=== PATIENT | male | born 1985 ===

== ENCOUNTER 2022-05-10 10:15 | Outpatient (CLI) | payer OTHER ==
--- NOTE | 2022-05-10 11:17 | SLEEP CARE CONSULTATION ---
Information from patient questionnaire entered by Edmundo Reyes MA. I have reviewed and concur with the information entered by Edmundo Reyes MA. This document represents the service I personally performed and the decisions made by , Jordyn Silvestre ARNP. History of Present Illness Service Date and Time: 05/10/2022 1015 Reason for Visit: New patient (ONSET 11/2016, ON CPAP, ), Previously diagnosed sleep apnea, sleep apnea on CPAP therapy Chief Complaint: reports: Observed pauses in breathing, Fatigue Date of Onset: 5 YEARS Usual bedtime: 9 - 4 AM Time it takes to fall asleep: RIGHT AWAY Snores at night: Yes Observed to quit breathing while asleep: Yes Sleeps alone due to snoring: No Number of times waking at night: 2-3 Reasons for waking at night: reports: Snoring, Bathroom Toss, Turn, or Twitch while sleeping: Yes Recalls having dreams: Yes Usually gets out of bed at: 0430 Feels refreshed in the morning: No Morning headache: Yes Sleepy or fatigued during the day: Yes Ever fallen asleep while driving: Yes Takes day naps: No Dreams during day naps: No Prior sleep studies: Yes Year and Where: 02/13/2018 [facility] [place] Additional HPI information: YAQUELIN DANIEL was previously diagnosed in 2018 to have moderate, AHI 22.4, obstructive sleep apnea-hypopnea syndrome and comes in today to establish care for CPAP therapy. He states that he had a sleep study done in [place] and was placed on CPAP therapy. He has not had any follow up since he started. He states he last got a machine in 2016, he thinks it was March. - Parasomnia Symptoms Ever been unable to move upon waking from sleep: Yes Walks in sleep: No Ever acted out dreams in sleep: No Ever felt weak in the knees when startled or emotional: Yes Bothered by creepy, crawly, restless sensations in legs: No Problems with memory or concentration: No CPAP Compliance Data - Data Reviewed with Patient Average duration of nightly device use: 6 hours 24 minutes Compliance rate %: 72 (60 days; 45/60 usage; 03-12-22 to 05-10-22) Current pressure setting (cmH2O): 8 Average residual AHI: 1.9 Central apnea: 0.3 Obstructive apnea: 1.4 Average large leak: 8.0 L/min Compliance data discussion: He uses his device regularly but he just started with the application in February with [employer] to record his device use. He gets his supplies from [facility] CPAP supplies. He is using a nasal over the nose mask, ResMed, Mirage FX. He changes his cushion every month. He does have a back up mask if needed. Subjective Missed days of use due to: reports: other (will fall asleep on the couch when watching TV at night) Patient concerns: denies: aerophagia, mask discomfort, air blowing in eyes, mask leak noise, condensation in mask/hose, nasal congestion, dry mouth, nose, throat, epistaxis, other Observed to snore while using device: No Current pressure setting perceived as: comfortable On therapy, patient: reports: sleeping better, awakening more refreshed, being more awake and alert during the day, more rested overall Initial [place] Sleepiness Scale score: 22 (05/10/2022) Past Medical History Past Medical History: reports: Hypertension, Other (Migraines) Social History 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 Patient is and lives in [place]. Have you smoked in the past 12 months: No Alcohol use: Yes Alcohol amount and frequency: occasionally Caffeine use: Yes Caffeine amount and frequency: 6 cups a day Family History Family history of sleep disordered breathing: Yes Family Hx Sleep Apnea: Mother: Snoring (KIDS), Father: Snoring, Sibling: Snoring, Grandparent: Snoring, Other: Snoring Allergies and Home Medications Known drug allergies: No Drug allergies reviewed: Yes (NKDA) Home medication list reviewed: Yes Allergy and home medication list: Medications: Sumatriptan Loratidine Fluticasone Montelukast Blood pressure medication Depression medication/stress meds Fish oil Calcium Vitamin D Vitamin B Review of Systems Weight gain over past 5 years: 30 lbs Cardiovascular: reports: high blood pressure Respiratory: reports: shortness of breath Gastrointestinal: reports: heartburn, nausea Psychiatric: reports: depression Ear/Nose/Throat: reports: sinus problems, tonsillectomy, wisdom teeth removed Endocrine: reports: sluggishness Immunologic: reports: sneezing, allergies to food or environment Physical Exam Vital signs obtained and entered by: Santiago REYES CMA AAAZ Blood Pressure: 122/75 (RESP 18, PUSLE 63, LEFT) Heart Rate: 63 O2 Saturation: 97 (CLOTH MASK) Height: 5 ft 9 in Weight: 224 lb Body Mass Index: 33.0 BMI Classification: Obese Neck circumference: 16 (INCHES) Heart: regular rate and rhythm Lungs: clear bilaterally Impression and Plan 1. Obstructive Sleep Apnea-Hypopnea Syndrome, moderate, with good treatment compliance and good apnea control. On CPAP therapy, the patient has better sleep quality and is more rested overall. He would like to get another baseline sleep study if we do not get copy of sleep study. We did get one from 2018 and he will be notified. He still has an [place] of 22/24. I think the patient is not getting sufficient amount of sleep. Patient averages 6.5 hours of sleep nightly . Most people require 7-9 hours of sleep for optimal mental and physical function. Less than 5-6 hours of sleep consistently can contribute to health risks and mortality. Thus patient is advised to strive for a minimum of 7 hours of sleep. Methods discussed on how patient can achieve within their lifestyle. He voiced understanding. Patient's apnea severity and rationale for treatment to reduce apnea, improve sleep quality and reduce cardiovascular and cerebrovascular events was reviewed. I also reviewed the benefit of consistent device use of CPAP for hypertension. Patient encouraged to lose weight to improve his overall health, reduce high blood pressure and reduce apneas. He voiced understanding and agreement. Patient would like to update his CPAP ResMed Airsense 10 for an Airsense 11 since his device is about 5 years old. Thus, the CPAP will be updated. A DWO prescription will be made. Compliance guidelines for new device and follow up discussed. He voiced understanding. * Continue CPAP pressure at 8 cmH2O * Polysomnography/HST to reverify diagnosis and severity if needed * Update CPAP machine * Update supplies as needed * Notify me if snoring with mask or feeling that the pressure is too much or too little * Attempt to lose weight * Call this office if any problems using CPAP * Return for follow up one month after obtaining new device (or after PSG if done), or sooner if concerns arise Counseling Topics: Spare mask, Weight loss health impact Visit Type: In Office Time Spent with Patient (minutes): 37 Provider Statement: I spent 100% of the Face to Face Visit with the patient with greater than 50% spent counseling the patient and coordination of care.
[2022-05-10 11:18] VITALS: BP 122/75
== END 2022-05-10 10:16 | disposition home or self-care (01) ==
LOC: SC 10:15
PROVIDERS: ATTEND Nurse Practitioner Family
DX: G47.33 Obstructive sleep apnea (adult) (pediatric) (principal); I10 Essential (primary) hypertension; E66.9 Obesity, unspecified; Z68.33 Body mass index [BMI] 33.0-33.9, adult
CPT/HCPCS: 99203; 99212

== ENCOUNTER 2023-12-23 11:06 | Outpatient (CLI) | payer OTHER ==
--- NOTE | 2023-12-23 10:58 | SLEEP CARE CONSULTATION ---
Information from patient questionnaire entered by Saba Vaz. I have reviewed and concur with the information entered by Saba Vaz. This document represents the service I personally performed and the decisions made by , Jordyn Silvestre ARNP. History of Present Illness Service Date and Time: 12/23/2023 1020 Previous diagnosis: Moderate, Obstructive Sleep Apnea-Hypopnea Syndrome AHI: 22.4 (in 2018) Reason for follow up: annual (LAST SEEN 04/2022) Equipment type: CPAP (RESMED Airsense 10, s/u 03/2018) Equipment obtained from: [facility]; getting supplies as needed) Mask style: Nasal (over the nose, medium cushion) Backup mask available: Yes Last cushion change: monthly Prior sleep studies: Yes Year and Where: 02/13/2018 [facility] [place] HPI additional information: YAQUELIN DANIEL was diagnosed to have moderate, AHI 22.4, obstructive sleep apnea- hypopnea syndrome and returns via telephone visit today for CPAP therapy annual follow-up. Sleep Study - Results Prior sleep studies: Yes Year and Where: 02/13/2018 [facility] [place] CPAP Compliance Data - Data Reviewed with Patient Average duration of nightly device use: 6 HRS 3 MINS Compliance rate %: 20 (12/20/22-12/19/23; 86/365 days used) Current pressure setting (cmH2O): 8 Average residual AHI: 1.8 Central apnea: 0.1 Obstructive apnea: 1.4 Hypopnea: 0.3 Average large leak: 0.4 Subjective Missed days of use due to: reports: other (forgets to put mask on; falling asl eep without) Patient concerns: reports: dry mouth, nose, throat. denies: aerophagia, mask discomfort, air blowing in eyes, mask leak noise, condensation in mask/hose, nasal congestion, epistaxis Observed to snore while using device: No Current pressure setting perceived as: comfortable On therapy, patient: reports: sleeping better, awakening more refreshed, being more awake and alert during the day, more rested overall. denies: drowsiness while driving Initial [place] Sleepiness Scale score: 22 (05/10/2022) Current [place] Sleepiness Scale score: 19 Allergies and Home Medications Known drug allergies: No Drug allergies reviewed: Yes Home medication list reviewed: Yes (Lisinopril 5 mg daily) Review of Systems Review of systems same as previous: Yes (no changes) Physical Exam Vital signs obtained and entered by: TING WASHINGTON Blood Pressure: 122/87 (per pt) Height: 5 ft 9 in Weight: 225 lb Body Mass Index: 33.2 BMI Classification: Obese Impression and Plan 1. Obstructive Sleep Apnea-Hypopnea Syndrome, moderate, with poor treatment compliance and good apnea control. On CPAP therapy, the patient has better sleep quality and is more rested overall. He has a ResMed Airsense 10 that was set up in 03/2018. The patients CPAP is over 5 years old and of reasonable use. Thus, the CPAP will be updated. The new CPAPs also have a better humidity system which could assist control of patients dryness symptoms. A DWO prescription will be made. Compliance guidelines for new device and follow up discussed. Patient's apnea severity and rationale for treatment to reduce apnea, improve sleep quality and reduce cardiovascular and cerebrovascular events was reviewed. I also reviewed the benefit of consistent device use of CPAP for hypertension and migraines. 2. Obesity, unspecified. Currently patients BMI is 33.2. Obesity increases the risk of apnea, CPAP pressure requirements and overall health risks especially cardiovascular and diabetes. Thus patient is advised to lose weight. * Continue CPAP pressure at 8 cmH2O * Update machine * Update supply prescription * Notify me if snoring with mask or feeling that the pressure is too much or too little * Attempt to lose weight * Call this office if any problems using CPAP * Return for follow up in 12 months, or sooner if concerns arise Counseling Topics: Spare mask, Weight loss health impact Prescriptions: Auto CPAP, Device supplies Follow up with Sleep Care in: other (Compliance visit) Visit Type: Telehealth Phone Video Type: Doximity Patient Location: Home Location of Provider: Office Patient agrees and consents to this telehealth visit type: Yes Patient agrees to have their insurance billed: Yes Time Spent with Patient (minutes): 18 Provider Statement: I spent 100% of the Telehealth Phone Call with the patient with greater than 50% spent counseling the patient and coordination of care.
[2023-12-23 11:08] VITALS: BP 122/87
== END 2023-12-23 11:07 | disposition home or self-care (01) ==
LOC: SC 11:06
PROVIDERS: ATTEND Nurse Practitioner Family
DX: G47.33 Obstructive sleep apnea (adult) (pediatric) (principal); E66.9 Obesity, unspecified; Z68.33 Body mass index [BMI] 33.0-33.9, adult
CPT/HCPCS: 99442